=== PATIENT | female | born 1935 | race Caucasian/White ===

== ENCOUNTER 2017-07-20 09:49 | Outpatient (CLI) | payer MEDICARE, BC | END 2017-07-20 23:59 | disposition home or self-care (01) | LOC: RAD 09:49 | PROVIDERS: ATTEND Family Medicine | DX: I70.0 Atherosclerosis of aorta (principal); R91.8 Other nonspecific abnormal finding of lung field; M81.0 Age-related osteoporosis without current pathological fracture; M43.8X5 Other specified deforming dorsopathies, thoracolumbar region | CPT/HCPCS: 71020-TC ==